=== PATIENT | male | born 1955 | race Caucasian/White ===

== ENCOUNTER → 2019-02-26 | Outpatient (CLI) | payer BC, OTHER ==
[~2019-02-26] MED LIST: PANT40TA5 PO
== END | disposition home or self-care (01) ==
LOC: STAR 11:02
PROVIDERS: ATTEND Orthopaedic Surgery
DX: M75.121 Complete rotator cuff tear or rupture of right shoulder, not specified as traumatic (principal); M75.21 Bicipital tendinitis, right shoulder; M75.41 Impingement syndrome of right shoulder
CPT/HCPCS: 93005

== ENCOUNTER 2019-03-04 12:01 | Day surgery (SDC) | payer BC, OTHER ==
[~2019-03-04] VITALS: Ht 177.8 cm; Wt 77.0 kg
[~2019-03-04 12:01] MED LIST changes: +BUPIVACAINE/PF 0.5% ONE; +EPINEPHRINE 1 MG/ML, 1ML ONE; +LIDOCAINE 1%, 20ML ONE; +PANTOPROZOLE 40MG TABLET PO SCH
[2019-03-04 12:22] VITALS: BP 130/86
[2019-03-04] MEDS ORDERED: LACTATED RINGERS 1,000 ML IV SCH (12:28)
[2019-03-04] MEDS ORDERED: BUPIVACAINE/PF 0.5% ONE (13:00)
[2019-03-04] MEDS ORDERED: FENTANYL PF 100 MCG/2ML ONE (13:00)
[2019-03-04] MEDS ORDERED: MIDAZOLAM 1 MG/ML, 2ML ONE (13:00)
[2019-03-04] MEDS ORDERED: ROCURONIUM 10 MG/ML,10ML ONE (14:44)
[2019-03-04] MEDS ORDERED: EPHEDRINE 50 MG/ML, 1ML ONE (14:44)
[2019-03-04] MEDS ORDERED: KETOROLAC 30 MG/1 ML ONE (14:44)
[2019-03-04] MEDS ORDERED: SUCCINYLCHOLINE 20 MG/ML, 10ML ONE (14:44)
[2019-03-04] MEDS ORDERED: MIDAZOLAM 1 MG/ML, 2ML IV PRN (16:30)
[2019-03-04] MEDS ORDERED: PROMETHAZINE 25 MG/ML, 1ML IV PRN (16:30)
[2019-03-04] MEDS ORDERED: METOPROLOL 1 MG/ML, 5ML IV PRN (16:30)
[2019-03-04] MEDS ORDERED: ALBUTEROL/IPRATROPIUM 2.5MG/0.5MG, 3 ML NPPB PRN (16:30)
[2019-03-04] MEDS ORDERED: OXYcodone 5 MG/5 ML ORAL.SOL UDC PO PRN (16:30)
[2019-03-04] MEDS ORDERED: FENTANYL PF 100 MCG/2ML IV PRN (16:30)
[2019-03-04] MEDS ORDERED: ACETAMINOPHEN 325 MG TABLET PO PRN (16:30)
[2019-03-04] MEDS ORDERED: KETOROLAC 30 MG/1 ML IV PRN (16:30)
[2019-03-04] MEDS ORDERED: MEPERIDINE/PF 25MG/0.5ML IVPush PRN (16:30)
[2019-03-04] MEDS ORDERED: ONDANSETRON 2MG/ML, 2ML IV PRN (16:30)
[2019-03-04] MEDS ORDERED: CEFAZOLIN 1,000 MG ONE (16:41)
[2019-03-04] MEDS ORDERED: ONDANSETRON 2MG/ML, 2ML ONE (16:41)
[2019-03-04] MEDS ORDERED: PROPOFOL 10 MG/ML, 20ML ONE (16:41)
[2019-03-04] MEDS ORDERED: DEXAMETHASONE 4 MG/ML, 1ML ONE (16:41)
== END 2019-03-04 18:40 | disposition home or self-care (01) ==
LOC: OUT 12:01
PROVIDERS: ATTEND Orthopaedic Surgery
DX: S43.431A Superior glenoid labrum lesion of right shoulder, initial encounter (principal); M75.121 Complete rotator cuff tear or rupture of right shoulder, not specified as traumatic; M25.311 Other instability, right shoulder; M94.211 Chondromalacia, right shoulder; M75.41 Impingement syndrome of right shoulder; M19.011 Primary osteoarthritis, right shoulder; M65.811 Other synovitis and tenosynovitis, right shoulder; K21.9 Gastro-esophageal reflux disease without esophagitis; Z79.899 Other long term (current) drug therapy; X58.XXXA Exposure to other specified factors, initial encounter; Y93.89 Activity, other specified; Y92.89 Other specified places as the place of occurrence of the external cause; Y99.8 Other external cause status
CPT/HCPCS: 29823; 29824; 29826; 29827; 29828; 64415; C1713; J0171; J0330; J0690; J1100; J1885; J2250; J2405; J2704; J3010